=== PATIENT | male | born 1985 | race Caucasian/White ===

== ENCOUNTER → 2021-03-06 | Outpatient (CLI) | payer OTHER | LOC: LAB 10:18 | DX: R76.8 Other specified abnormal immunological findings in serum (principal); R89.9 Unspecified abnormal finding in specimens from other organs, systems and tissues; M25.50 Pain in unspecified joint | CPT/HCPCS: 36415; 82550; 83520; 86140; 86200 ==

== ENCOUNTER 2022-02-27 15:04 | Emergency (ER) | payer OTHER | END 2022-02-27 16:17 | disposition home or self-care (01) | LOC: ER1 15:04 | DX: R59.9 Enlarged lymph nodes, unspecified (principal) | CPT/HCPCS: 99283 ==